=== PATIENT | male | born 1955 | race Caucasian/White ===

== ENCOUNTER 2017-12-08 10:51 | Emergency (ER) | payer OTHER ==
[~2017-12-08] VITALS: Ht 185.4 cm; Wt 68.0 kg
[2017-12-08] MEDS ORDERED: ONDA8 (11:21)
[2017-12-08] MEDS ORDERED: QUET25 (11:22)
[2017-12-08] MEDS ORDERED: Humalog100 UNIT/1 (11:22)
[2017-12-08] MEDS ORDERED: PROC5 PO (11:22)
[2017-12-08] MEDS ORDERED: PRAZ1 (11:22)
[2017-12-08] MEDS ORDERED: LORA1 PO (11:22)
[2017-12-08] MEDS ORDERED: CREON DR 36,001 EACH PO (11:22)
[2017-12-08] MEDS ORDERED: GLIP2.5ER (11:23)
[2017-12-08] MEDS ORDERED: HUMULIN N100 UNIT/1 (11:23)
[2017-12-08] MEDS ORDERED: DULO30 (11:33)
[2017-12-08] MEDS ORDERED: Amitiza8 MCG (11:33)
[2017-12-08] MEDS ORDERED: MONT4 (11:34)
[2017-12-08] MEDS ORDERED: PANT20 (11:34)
[2017-12-08] MEDS ORDERED: GLIM2 (11:34)
[2017-12-08] MEDS ORDERED: TAMS.4ER (11:34)
[2017-12-08] MEDS ORDERED: FAMO10 (11:34)
[2017-12-08] MEDS ORDERED: ERGO400 (11:34)
[2017-12-08] MEDS ORDERED: POTCHL10ER (11:35)
[2017-12-08] MEDS ORDERED: TOPI25 (11:36)
[2017-12-08] MEDS ORDERED: FURO100EL (11:36)
[2017-12-08] MEDS ORDERED: LACT10SY (11:36)
[2017-12-08] MEDS ORDERED: MAGCHL64ER (11:36)
[2017-12-08] MEDS ORDERED: LIDO5TO (11:36)
== END 2017-12-08 13:25 | disposition home or self-care (01) ==
LOC: ER 10:51 → EDSEX 10:51 → ER 13:25
DX: L89.151 Pressure ulcer of sacral region, stage 1 (principal); Z76.0 Encounter for issue of repeat prescription; E11.9 Type 2 diabetes mellitus without complications; I10 Essential (primary) hypertension; F41.9 Anxiety disorder, unspecified; F32.9 Major depressive disorder, single episode, unspecified; F43.10 Post-traumatic stress disorder, unspecified; Z88.2 Allergy status to sulfonamides; Z88.1 Allergy status to other antibiotic agents; Z88.0 Allergy status to penicillin; Z88.8 Allergy status to other drugs, medicaments and biological substances; Z88.5 Allergy status to narcotic agent
CPT/HCPCS: 96372; 99283; J1170